=== PATIENT | female | born 1935 | race Caucasian/White ===

== ENCOUNTER 2020-09-04 15:13 | Day surgery (SDCO) | payer MEDICARE ==
[~2020-09-04 15:13] MED LIST: ALLEGRA ALLERG180 MG PO; ALLEGRA-D 12 H1 EACH PO; AUGMENTIN 875-1 EACH PO; CEFDINIR300 MG PO; CERTAGEN1 EACH PO; COLACE100 MG PO; CULTURELLE1 EAC1 PO; CYMBALTA 30MG C30 MG PO; DITROPAN5 MG PO; DULCOLAX5 MG PO; DUONEB 2.5-0.5M1 AMP NEB; EFFEXOR XR 3737.5 MG PO; EVISTA60 M1 PO; GLUCOPHAGE500 MG PO; GUAIFEN-CODEINE10 ML PO; IBUPROFEN800 MG PO; IPRATROPIU0.2 MG/1 M NEB; KETOROLAC TROME10 MG PO; KRILL OIL500 MG PO; LAXATIVE OF CHOICE; LEVALBUTER0.63 MG/3 NEB; LOPRESSOR25 MG PO; MAG-OXIDE 400M400 MG PO; MICON-GUARD 2% TOP; MORPHINE 30MG E30 MG PO; MORPHINE PO; MORPHINE SULFAT15 MG PO; MUCINEX 600MG600 MG PO; NEBULIZER UNIT NEB; NIFEDIPINE ER30 M1 PO; OYSTER SHELL 51 EACH PO; POTASSIUM CHLO20 ME2 PO; PREVACID30 M1 PO; PROAIR HFA8.5 GM INH; ROBAXIN750 MG PO; SYNTHROID150 MCG PO; TAMIFLU 75MG CA75 MG PO; TORSEMIDE10 MG PO; VIBRAMYCIN100 MG PO; VITAMIN D; VITAMIN D31000 UNIT PO
== END 2020-09-05 12:15 | disposition home or self-care (01) ==
LOC: FMS 15:13
PROVIDERS: ADMIT Surgery
DX: K57.31 Diverticulosis of large intestine without perforation or abscess with bleeding (principal); K64.8 Other hemorrhoids; K59.00 Constipation, unspecified; I48.91 Unspecified atrial fibrillation; M47.812 Spondylosis without myelopathy or radiculopathy, cervical region; M47.816 Spondylosis without myelopathy or radiculopathy, lumbar region; F32.9 Major depressive disorder, single episode, unspecified; K21.9 Gastro-esophageal reflux disease without esophagitis; I50.30 Unspecified diastolic (congestive) heart failure; M81.0 Age-related osteoporosis without current pathological fracture; M16.0 Bilateral primary osteoarthritis of hip; M17.0 Bilateral primary osteoarthritis of knee; E11.9 Type 2 diabetes mellitus without complications; E03.9 Hypothyroidism, unspecified; M41.9 Scoliosis, unspecified; K74.60 Unspecified cirrhosis of liver; Z86.010 Personal history of colon polyps; Z87.891 Personal history of nicotine dependence; Z79.84 Long term (current) use of oral hypoglycemic drugs; Z79.899 Other long term (current) drug therapy; Z88.8 Allergy status to other drugs, medicaments and biological substances; Z98.84 Bariatric surgery status; Z20.822 Contact with and (suspected) exposure to COVID-19
CPT/HCPCS: G0378; J1610; J2704; J7120; U0002

== ENCOUNTER 2020-11-24 11:55 | Emergency (ER) | payer MEDICARE ==
[2020-11-24 15:22] LABS: BASOPHIL 0.6 % (0-2); HCT 31.6 % (37.0-47.0); HGB 10.1 g/dl (12.5-16.0); LYMPHOCYTE 15.7 % (15-48); MCH 29.4 pg (25.0-31.0); MCV 92.1 fL (78.0-100.0); MONOCYTE 6.6 % (0-12); MPV 12.3 fL (6.0-9.5); NEUTROPHIL 70.8 % (41-80); NRBC 0; RBC 3.43 M/uL (4.20-5.40); RDW 14.6 % (11.5-14.0); WBC 3.5 K/uL (4.0-10.5)
[2020-11-24 15:24] LABS: PLT 52 K/uL (150-400)
[2020-11-24 16:47] LABS: CREATININE 0.52 mg/dL (0.51-0.95); POTASSIUM 3.6 mmol/L (3.5-5.1)
[2020-11-24] MEDS ORDERED: LASIX20 MG PO (17:22)
[2020-11-24] MEDS ORDERED: AUGMENTIN 875-1 EACH PO (17:22)
== END 2020-11-24 17:30 | disposition home or self-care (01) ==
LOC: FER 11:55
PROVIDERS: Nurse Practitioner Family
DX: S81.852A Open bite, left lower leg, initial encounter (principal); R60.0 Localized edema; E07.9 Disorder of thyroid, unspecified; E11.9 Type 2 diabetes mellitus without complications; Z87.19 Personal history of other diseases of the digestive system; Z79.84 Long term (current) use of oral hypoglycemic drugs; W55.01XA Bitten by cat, initial encounter
CPT/HCPCS: 36415; 80048; 83880; 85025; 99283

== ENCOUNTER 2020-12-20 08:58 | Emergency (ER) | payer MEDICARE ==
[~2020-12-20 08:58] MED LIST changes: +LASIX20 MG PO
== END 2020-12-20 12:09 | disposition home or self-care (01) ==
LOC: FER 08:58
DX: S22.028A Other fracture of second thoracic vertebra, initial encounter for closed fracture (principal); M51.34 Other intervertebral disc degeneration, thoracic region; M54.2 Cervicalgia; Z87.891 Personal history of nicotine dependence; W06.XXXA Fall from bed, initial encounter
CPT/HCPCS: 72125; 72128

== ENCOUNTER 2021-03-20 14:02 | Day surgery (SDCO) | payer MEDICARE ==
[~2021-03-20] VITALS: Ht 170.2 cm; Wt 55.0 kg
[2021-03-20 16:13] LABS: BASOPHIL 0 % (0-2); HGB 11.5 g/dl (12.5-16.0); LYMPHOCYTE 17.5 % (15-48); MCH 29.6 pg (25.0-31.0); MCHC 31.9 g/dL (32.0-36.0); MCV 92.8 fL (78.0-100.0); MONOCYTE 12.8 % (0-12); NEUTROPHIL 66.3 % (41-80); NRBC 0; RBC 3.88 M/uL (4.20-5.40); RDW 14.5 % (11.5-14.0); WBC 2.3 K/uL (4.0-10.5)
[2021-03-20 16:17] LABS: PLT 44 K/uL (150-400)
[2021-03-20 16:45] LABS: ALBUMIN 2.6 g/dL (3.4-5.0); BILIRUBIN - TOTAL 0.4 mg/dL (0.2-1.0); BUN/CREAT RATIO (CALC) 19.1 RATIO; CREATININE 0.47 mg/dL (0.51-0.95); GLOBULIN (CALCULATION) 3.3 g/dL; POTASSIUM 3.8 mmol/L (3.5-5.1); TOTAL PROTEIN 5.9 g/dL (6.4-8.2)
[2021-03-20 18:06] LABS: BILIRUBIN NEGATIVE (NEGATIVE); BLOOD NEGATIVE Ery/uL (NEGATIVE); COLOR YELLOW (YELLOW); GLUCOSE (U) NORMAL (NORMAL); LEUKOCYTES TRACE Leu/uL (NEGATIVE); NITRITE NEGATIVE (NEGATIVE); PROTEIN 1+ mg/dL (NEGATIVE)
[2021-03-20 18:24] LABS: CLARITY SLIGHTLY HAZY (CLEAR)
[2021-03-20 18:29] LABS: BACTERIA 1+; URINARY RBC RARE
[2021-03-20] MEDS ORDERED: AZITHROMYCIN250 MG PO (20:30)
[2021-03-20] MEDS ORDERED: ONDANSETRON ODT4 MG PO (20:30)
[2021-03-21] MEDS ORDERED: SYNTHROID25 MCG PO (03:03)
[2021-03-21] MEDS ORDERED: PAXIL10 MG PO (03:04)
[2021-03-21] MEDS ORDERED: FLONASE ALLER15.8 ML (03:07)
[2021-03-21] MEDS ORDERED: TRELEGY ELLIPT1 EACH PO (03:08)
[2021-03-21] MEDS ORDERED: FLORAJEN ACIDO1 EACH PO (03:11)
[2021-03-21 07:14] LABS: BASOPHIL 0 % (0-2); EOSINOPHIL 0 % (0-7); HCT 34.6 % (37.0-47.0); LYMPHOCYTE 25.2 % (15-48); MCH 28.9 pg (25.0-31.0); MCHC 31.8 g/dL (32.0-36.0); MCV 90.8 fL (78.0-100.0); MONOCYTE 9.7 % (0-12); MPV 12.1 fL (6.0-9.5); NEUTROPHIL 65.1 % (41-80); NRBC 0; RBC 3.81 M/uL (4.20-5.40); RDW 14.2 % (11.5-14.0)
[2021-03-21 07:28] LABS: PLT 50 K/uL (150-400)
--- NOTE | 2021-03-21 09:24 | NUR ---
PT LIVES WITH SPOUSE; PT HAS [employer] INSURANCE. INS ANTICIPATED D/C 03/21.
--- NOTE | 2021-03-21 13:39 | NUR ---
DUE TO PT IN ISOLATION HAD TO CALL PT. SHE ADVIED THAT SHE IS FEELING FINE. INQUIRED REGARDING HER CAREGIVER. SHE STATED THAT HER 'S NEPHEW, SANJEEV, WAS LIVING WITH THEM AND HELPING TO CARE FOR THEM. SHE STATED THAT HE CAN HELP HER WTIH WHATEVER SHE NEEDS. SHE HAS HOME O2, RW AND WC. PT. STATED THAT HER ;S LAST DAY OF QUARERTINE IS TODAY. SHE STATED THAT HE COULD COME AND PICK HER UP. ADVISED DR. SANDOVAL AND LUIS VILLAFUERTE OF THIS INFORMATION. PER PT. LISA CANNOT ACCEPT HER. SHE ASKED ME TO TRY [facility]. SENT REFERRAL TO FELI AT [facility].
--- NOTE | 2021-03-21 14:39 | NUR ---
PER DR. SANDOVAL, PT. WILL NOT D/C HOME THIS DATE DUE TO HER WHITE COUNT BEING EXCEPTIONALLY LOW.
[2021-03-22 07:23] LABS: BASOPHIL 0.3 % (0-2); EOSINOPHIL 1.3 % (0-7); HCT 33.8 % (37.0-47.0); HGB 10.9 g/dl (12.5-16.0); LYMPHOCYTE 21.7 % (15-48); MCH 29.2 pg (25.0-31.0); MCHC 32.2 g/dL (32.0-36.0); MCV 90.6 fL (78.0-100.0); MONOCYTE 11.5 % (0-12); MPV 11.9 fL (6.0-9.5); NEUTROPHIL 64.9 % (41-80); NRBC 0; RBC 3.73 M/uL (4.20-5.40); RDW 14.5 % (11.5-14.0); RETICULOCYTE COUNT 0.8 % (1.0-2.0)
[2021-03-22 07:24] LABS: PLT 67 K/uL (150-400); WBC 3.8 K/uL (4.0-10.5)
[2021-03-22 07:40] LABS: IRON % SATURATION 13.3 %SAT (20-50)
[2021-03-22 07:52] LABS: TOTAL CELL COUNT 100
[2021-03-22 07:59] LABS: EOSINOPHIL(M) 4 % (0-7); LYMPHOCYTE(M) 17 % (15-48); MONOCYTE(M) 9 % (0-12); MYELOCYTE 1; NEUTROPHILS(M) 69 % (41-80); PLATELET ESTIMATE DECREASED; PLATELET MORPHOLOGY NORMAL
[2021-03-22 08:07] LABS: BUN/CREAT RATIO (CALC) 22.4 RATIO; CREATININE 0.58 mg/dL (0.51-0.95); FOLIC ACID (SERUM) 13.3 ng/mL (8.6-58.9); POTASSIUM 4.2 mmol/L (3.5-5.1)
--- NOTE | 2021-03-22 15:17 | NUR ---
ADVISED FELI WITH [employer] THAT PT. WOULD D/C HOME TODAY 03/22/21.
== END 2021-03-22 17:08 | disposition home health service (06) ==
LOC: FER 14:02 → FMS 22:22
PROVIDERS: Emergency Medicine; Nurse Practitioner; ADMIT Internal Medicine
DX: U07.1 COVID-19 (principal); D50.9 Iron deficiency anemia, unspecified; I10 Essential (primary) hypertension; E86.0 Dehydration; I48.0 Paroxysmal atrial fibrillation; Z23 Encounter for immunization; J90 Pleural effusion, not elsewhere classified; G89.4 Chronic pain syndrome; E11.40 Type 2 diabetes mellitus with diabetic neuropathy, unspecified; I25.10 Atherosclerotic heart disease of native coronary artery without angina pectoris; K21.9 Gastro-esophageal reflux disease without esophagitis; F32.9 Major depressive disorder, single episode, unspecified; E03.9 Hypothyroidism, unspecified; E78.5 Hyperlipidemia, unspecified; D69.6 Thrombocytopenia, unspecified; M19.90 Unspecified osteoarthritis, unspecified site; K59.09 Other constipation; K76.0 Fatty (change of) liver, not elsewhere classified; H91.90 Unspecified hearing loss, unspecified ear; Z99.81 Dependence on supplemental oxygen; Z79.84 Long term (current) use of oral hypoglycemic drugs; Z79.899 Other long term (current) drug therapy; Z79.891 Long term (current) use of opiate analgesic; Z88.8 Allergy status to other drugs, medicaments and biological substances; Z90.49 Acquired absence of other specified parts of digestive tract; Z87.891 Personal history of nicotine dependence
CPT/HCPCS: 36415; 71275; 80048; 80053; 81001; 82607; 82746; 83540; 83550; 84484; 85025; 93005; 94010; G0378; J2405; J2930; J7030; M0243; Q0244; Q9967; U0002

== ENCOUNTER 2021-05-10 16:45 | Emergency (ER) | payer MEDICARE ==
[~2021-05-10 16:45] MED LIST changes: +AZITHROMYCIN250 MG PO; +FLONASE ALLER15.8 ML; +FLORAJEN ACIDO1 EACH PO; +ONDANSETRON ODT4 MG PO; +PAXIL10 MG PO; +SYNTHROID25 MCG PO; +TRELEGY ELLIPT1 EACH PO
[2021-05-10 18:34] LABS: BASOPHIL 0.6 % (0-2); EOSINOPHIL 4.6 % (0-7); HCT 35.3 % (37.0-47.0); HGB 11.2 g/dl (12.5-16.0); LYMPHOCYTE 12.6 % (15-48); MCH 29.2 pg (25.0-31.0); MCHC 31.7 g/dL (32.0-36.0); MCV 92.2 fL (78.0-100.0); MONOCYTE 6.9 % (0-12); MPV 12.6 fL (6.0-9.5); NRBC 0; RBC 3.83 M/uL (4.20-5.40); RDW 14.2 % (11.5-14.0); WBC 3.5 K/uL (4.0-10.5)
[2021-05-10 18:53] LABS: LACTIC ACID 2.3 mmol/L (0.4-1.9)
[2021-05-10 18:57] LABS: ALBUMIN 3.2 g/dL (3.4-5.0); BILIRUBIN - TOTAL 0.6 mg/dL (0.2-1.0); CREATININE 0.6 mg/dL (0.51-0.95); GLOBULIN (CALCULATION) 3.1 g/dL; POTASSIUM 3.8 mmol/L (3.5-5.1); TOTAL PROTEIN 6.3 g/dL (6.4-8.2)
[2021-05-10 19:08] LABS: PLT 48 K/uL (150-400)
== END 2021-05-10 21:55 | disposition home or self-care (01) ==
LOC: FER 16:45
PROVIDERS: Nurse Practitioner Family
DX: R10.84 Generalized abdominal pain (principal); R19.7 Diarrhea, unspecified; E11.9 Type 2 diabetes mellitus without complications; Z90.49 Acquired absence of other specified parts of digestive tract; R10.817 Generalized abdominal tenderness; R10.814 Left lower quadrant abdominal tenderness
CPT/HCPCS: 36415; 71045; 80053; 83605; 84484; 85025; 87040; 93005; J2405; J7030; Q9967

== ENCOUNTER 2021-09-08 13:23 | Emergency (ER) | payer MEDICARE ==
[2021-09-08 14:24] LABS: BASOPHIL 0.3 % (0-2); HCT 40.4 % (37.0-47.0); LYMPHOCYTE 5.1 % (15-48); MCH 29.3 pg (25.0-31.0); MCHC 32.2 g/dL (32.0-36.0); MCV 91.2 fL (78.0-100.0); MONOCYTE 7.6 % (0-12); MPV 12.7 fL (6.0-9.5); NEUTROPHIL 85.7 % (41-80); NRBC 0; RBC 4.43 M/uL (4.20-5.40); RDW 14.6 % (11.5-14.0); WBC 9.3 K/uL (4.0-10.5)
[2021-09-08 14:31] LABS: PLT 57 K/uL (150-400)
[2021-09-08 14:37] LABS: ALBUMIN 2.9 g/dL (3.4-5.0); BILIRUBIN - TOTAL 1.2 mg/dL (0.2-1.0); BUN/CREAT RATIO (CALC) 10.8 RATIO; CREATININE 1.57 mg/dL (0.51-0.95); GLOBULIN (CALCULATION) 3.3 g/dL; TOTAL PROTEIN 6.2 g/dL (6.4-8.2)
[2021-09-08 14:56] LABS: LACTIC ACID 1.2 mmol/L (0.4-1.9)
[2021-09-08 14:59] LABS: INFLUENZA A NAA NEGATIVE (NEGATIVE)
[2021-09-08 15:07] LABS: CORONAVIRUS 2019 SARS-COV-2 POSITIVE (NEGATIVE)
[2021-09-08 16:24] LABS: BILIRUBIN NEGATIVE (NEGATIVE); BLOOD NEGATIVE Ery/uL (NEGATIVE); CLARITY CLEAR (CLEAR); COLOR YELLOW (YELLOW); GLUCOSE (U) NORMAL (NORMAL); LEUKOCYTES NEGATIVE Leu/uL (NEGATIVE); NITRITE NEGATIVE (NEGATIVE); PROTEIN NEGATIVE (NEGATIVE); SPECIFIC GRAVITY 1.015 (1.001-1.030)
== END 2021-09-08 19:20 | disposition home or self-care (01) ==
LOC: FER 13:23
PROVIDERS: Nurse Practitioner Family
DX: U07.1 COVID-19 (principal); K59.00 Constipation, unspecified; R10.11 Right upper quadrant pain; I10 Essential (primary) hypertension; E11.9 Type 2 diabetes mellitus without complications; I25.10 Atherosclerotic heart disease of native coronary artery without angina pectoris; J44.9 Chronic obstructive pulmonary disease, unspecified; Z88.7 Allergy status to serum and vaccine; Z87.891 Personal history of nicotine dependence
CPT/HCPCS: 36415; 71250; 80053; 81003; 82150; 83605; 83690; 84145; 85025; 87040; J7030; U0002

== ENCOUNTER 2021-10-19 10:29 | Emergency (ER) | payer MEDICARE ==
[2021-10-19 11:24] LABS: BASOPHIL 0.3 % (0-2); EOSINOPHIL 0.8 % (0-7); HCT 41.3 % (37.0-47.0); HGB 13.2 g/dl (12.5-16.0); LYMPHOCYTE 5.7 % (15-48); MCH 29.7 pg (25.0-31.0); MONOCYTE 6.7 % (0-12); MPV 12.2 fL (6.0-9.5); NEUTROPHIL 86.1 % (41-80); NRBC 0; RBC 4.44 M/uL (4.20-5.40); RDW 15.5 % (11.5-14.0); WBC 9.4 K/uL (4.0-10.5)
[2021-10-19 11:27] LABS: ALBUMIN 3.3 g/dL (3.4-5.0); BILIRUBIN - TOTAL 1.1 mg/dL (0.2-1.0); CREATININE 0.5 mg/dL (0.51-0.95); GLOBULIN (CALCULATION) 3.2 g/dL; POTASSIUM 3.9 mmol/L (3.5-5.1); TOTAL PROTEIN 6.5 g/dL (6.4-8.2)
[2021-10-19 11:28] LABS: PLT 60 K/uL (150-400)
[2021-10-19 11:57] LABS: BILIRUBIN NEGATIVE (NEGATIVE); BLOOD NEGATIVE Ery/uL (NEGATIVE); CLARITY CLEAR (CLEAR); COLOR YELLOW (YELLOW); GLUCOSE (U) NORMAL (NORMAL); LEUKOCYTES NEGATIVE Leu/uL (NEGATIVE); NITRITE NEGATIVE (NEGATIVE); PROTEIN 1+ mg/dL (NEGATIVE)
[2021-10-19 12:14] LABS: BACTERIA TRACE
[2021-10-19] MEDS ORDERED: CITRATE OF MAG296 ML PO (12:34)
== END 2021-10-19 11:45 | disposition home or self-care (01) ==
LOC: FER 10:29
PROVIDERS: Emergency Medicine
DX: K59.00 Constipation, unspecified (principal); E11.40 Type 2 diabetes mellitus with diabetic neuropathy, unspecified; I10 Essential (primary) hypertension; J44.9 Chronic obstructive pulmonary disease, unspecified; Z91.048 Other nonmedicinal substance allergy status; Z79.84 Long term (current) use of oral hypoglycemic drugs; Z79.899 Other long term (current) drug therapy
CPT/HCPCS: 36415; 74022; 80053; 81001; 85025